=== PATIENT | female | born 1945 | race Caucasian/White ===

== ENCOUNTER → 2016-08-06 16:34 | Outpatient (CLI) | payer MEDICARE | END | disposition home or self-care (01) | LOC: D.MAMMO 13:15 | DX: Z12.31 Encounter for screening mammogram for malignant neoplasm of breast (principal) ==

== ENCOUNTER 2016-11-26 10:30 | Outpatient (CLI) | payer MEDICARE ==
[~2016-11-26] VITALS: Ht 154.9 cm; Wt 88.6 kg
[2016-11-26 12:29] LABS: BASOPHILS 0.5 % (0-2); EOSINOPHILS 4.3 % (0-7); HEMATOCRIT 32.6 % (36.0-48.0); HEMOGLOBIN 10.9 g/dL (12-16); IMMATURE GRANULOCYTES 0.2 % (0-5); LYMPHOCYTES 23.1 % (15-50); MCH 33.1 pg (26.0-34.0); MCHC 33.4 g/dL (31.0-37.0); MCV 99.1 fL (80.0-100.0); MEAN PLATELET VOLUME 9.3 fL (7.4-10.4); MONOCYTES 6.8 % (2-11); NEUTROPHILS 65.1 % (40-80); PLATELET COUNT 189 10x3/uL (130-400); RBC 3.29 10x6/uL (4.00-5.40); RDW 13.2 % (11.5-14.5); WBC 4.4 10x3/uL (4.8-10.8)
[2016-11-26] MEDS ORDERED: GLUCOPHAGE500 MG PO (12:39)
[2016-11-26] MEDS ORDERED: CARDURA2 MG PO (12:40)
[2016-11-26] MEDS ORDERED: LEVOTHYROXINE137 MCG PO (12:40)
[2016-11-26] MEDS ORDERED: HYDROCHLOROTH12.5 M1 PO (12:40)
[2016-11-26] MEDS ORDERED: ZEBETA10 MG PO (12:40)
[2016-11-26] MEDS ORDERED: BUPROPION XL150 MG PO (12:41)
[2016-11-26] MEDS ORDERED: PRINIVIL20 MG PO (12:41)
[2016-11-26] MEDS ORDERED: NORVASC10 MG PO (12:41)
[2016-11-26] MEDS ORDERED: CELEXA40 MG PO (12:41)
[2016-11-26] MEDS ORDERED: FENOFIBRATE134 MG PO (12:41)
[2016-11-26] MEDS ORDERED: ULTRAM50 MG PO (12:42)
[2016-11-26 12:43] LABS: ANION GAP 14.9 mmol/L (8-16); CALCIUM 9.1 mg/dL (8.5-10.1); CARBON DIOXIDE 24.9 mmol/L (21.0-32.0); CREATININE - SERUM 1.2 mg/dL (0.6-1.3); POTASSIUM - SERUM 3.8 mmol/L (3.5-5.1)
[2016-11-26 12:50] VITALS: BP 123/69; Ht 154.9 cm; Wt 88.6 kg
[2016-11-26 13:10] LABS: APTT 26.8 SECONDS (22.8-39.4); INR 0.92 (0.85-1.17); PROTIME 12.2 SECONDS (11.6-15.0)
--- NOTE | 2016-11-26 18:46 | NUR ---
1530--ALL VITAL SIGNS CHARTED ON POST PROCEDURE VITAL SIGN SHEET ON CHART. ALEXIA JENNINGS 1630--IV DC'D, PT UP TO DRESS. ALEXIA JENNINGS 2025--PT'S RIDE IS HERE, DISCHARGE INSTRUCTIONS GIVEN. PT VERBALIZES UNDERSTANDING, PT OFF UNIT VIA WC. ALEXIA JENNINGS
== END 2016-11-26 17:55 | disposition home or self-care (01) ==
LOC: D.OPS 10:30 → D.SP 13:00 → D.OPS 17:55
PROVIDERS: Radiology Diagnostic Radiology
DX: C90.00 Multiple myeloma not having achieved remission (principal)

== ENCOUNTER 2017-01-30 17:41 | Inpatient (IN) | payer MEDICARE ==
[~2017-01-30] VITALS: Ht 154.9 cm; Wt 87.5 kg
[~2017-01-30 17:41] MED LIST: BUPROPION XL150 MG PO; CARDURA2 MG PO; CELEXA40 MG PO; FENOFIBRATE134 MG PO; GLUCOPHAGE500 MG PO; HYDROCHLOROTH12.5 M1 PO; LEVOTHYROXINE137 MCG PO; NORVASC10 MG PO; PRINIVIL20 MG PO; ULTRAM50 MG PO; ZEBETA10 MG PO
[2017-01-30 18:26] LABS: BASOPHILS 0.1 % (0-2); EOSINOPHILS 0.2 % (0-7); HEMATOCRIT 31.6 % (36.0-48.0); HEMOGLOBIN 10.7 g/dL (12-16); IMMATURE GRANULOCYTES 0.3 % (0-5); LYMPHOCYTES 6.6 % (15-50); MCH 33.2 pg (26.0-34.0); MCHC 33.9 g/dL (31.0-37.0); MCV 98.1 fL (80.0-100.0); MEAN PLATELET VOLUME 9.4 fL (7.4-10.4); MONOCYTES 7.1 % (2-11); NEUTROPHILS 85.7 % (40-80); PLATELET COUNT 178 10x3/uL (130-400); RBC 3.22 10x6/uL (4.00-5.40); WBC 12.7 10x3/uL (4.8-10.8)
[2017-01-30 18:45] LABS: ALBUMIN 3.4 g/dL (3.4-5.0); ANION GAP 14.6 mmol/L (8-16); BILIRUBIN - TOTAL 0.39 mg/dL (0.2-1.3); CALCIUM 9.3 mg/dL (8.5-10.1); CARBON DIOXIDE 24.6 mmol/L (21.0-32.0); CREATININE - SERUM 2.1 mg/dL (0.6-1.3); POTASSIUM - SERUM 4.2 mmol/L (3.5-5.1); PROTEIN - SERUM 8.6 g/dL (6.4-8.2)
[2017-01-30 20:00] VITALS: BP 91/45
[2017-01-30 20:58] VITALS: BP 122/58; BMI 36.5
[2017-01-31] VITALS: BP 97/57
[2017-01-31 04:00] VITALS: BP 115/57
[2017-01-31 06:46] LABS: BASOPHILS 0.1 % (0-2); EOSINOPHILS 1.4 % (0-7); HEMATOCRIT 28.5 % (36.0-48.0); HEMOGLOBIN 9.6 g/dL (12-16); IMMATURE GRANULOCYTES 0.1 % (0-5); LYMPHOCYTES 11.7 % (15-50); MCH 33.1 pg (26.0-34.0); MCHC 33.7 g/dL (31.0-37.0); MCV 98.3 fL (80.0-100.0); MEAN PLATELET VOLUME 9.6 fL (7.4-10.4); MONOCYTES 7.7 % (2-11); PLATELET COUNT 151 10x3/uL (130-400); RDW 13.9 % (11.5-14.5)
--- NOTE | 2017-01-31 07:00 | NUR ---
REPORT RECIEVED ASSUMED CARE. PATIENT IN BED WITH IV INTACT. NO COMPLAINTS AT THIS TIME. CALL LIGHT WITHIN REACH.
[2017-01-31 07:10] LABS: ALBUMIN 2.8 g/dL (3.4-5.0); ANION GAP 12.2 mmol/L (8-16); BILIRUBIN - TOTAL 0.35 mg/dL (0.2-1.3); CALCIUM 8.7 mg/dL (8.5-10.1); CARBON DIOXIDE 25.7 mmol/L (21.0-32.0); CREATININE - SERUM 1.7 mg/dL (0.6-1.3); POTASSIUM - SERUM 3.9 mmol/L (3.5-5.1); PROTEIN - SERUM 7.5 g/dL (6.4-8.2)
[2017-01-31 07:48] VITALS: BP 119/57
--- NOTE | 2017-01-31 08:15 | NUR ---
ASSESSMENT COMPLETE, VS STABLE. NO COMPLAINTS AT THIS TIME. REDNESS TO LEFT AXILLA NOTED. IV INTACT. CALL LIGHT WITHIN REACH.
[2017-01-31 09:16] LABS: APPEARANCE CLEAR (CLEAR); BILIRUBIN NEGATIVE (NEGATIVE); COLOR YELLOW (YELLOW); GLUCOSE NEGATIVE (NEGATIVE); KETONE NEGATIVE (NEGATIVE); LEUKOCYTE ESTERASE NEGATIVE (NEGATIVE); NITRITE NEGATIVE (NEGATIVE); PROTEIN TRACE mg/dL (NEGATIVE); UROBILINOGEN NORMAL (NORMAL)
[2017-01-31 11:20] VITALS: Ht 154.9 cm; Wt 87.5 kg
[2017-01-31 11:47] VITALS: BP 121/73
--- NOTE | 2017-01-31 13:15 | NUR ---
PATIENT LEFT AXILLA ABCESS DRAINING AT THIS TIME. 4X4'S PLACED. PATIENT TOLERATED WITH NO PAIN. IV INTACT. CALL LIGHT WITHIN REACH.
[2017-01-31 16:22] VITALS: BP 130/70
--- NOTE | 2017-01-31 17:29 | NUR ---
PATIENT SITTING UP IN CHAIR WITH IV INTACT. NO COMPLAINTS AT THIS TIME. CALL LIGHT WITHIN REACH.
[2017-01-31 19:00] VITALS: BP 136/76
[2017-02-01] VITALS (11 sets, daily range): BP systolic 94–139; BP diastolic 44–78
[2017-02-01] MEDS ORDERED: ADVAIR 100/501 DISK INH (05:44)
[2017-02-01] MEDS ORDERED: NASONEX NASAL S17 GM NS (05:45)
[2017-02-01] MEDS ORDERED: PROAIR HFA8.5 GM INH (05:46)
[2017-02-01] MEDS ORDERED: NORVASC5 MG PO (05:47)
[2017-02-01 06:06] LABS: BASOPHILS 0 % (0-2); EOSINOPHILS 3.8 % (0-7); HEMOGLOBIN 9.4 g/dL (12-16); LYMPHOCYTES 17.5 % (15-50); MCH 33.2 pg (26.0-34.0); MCHC 33.6 g/dL (31.0-37.0); MCV 98.9 fL (80.0-100.0); MEAN PLATELET VOLUME 9.4 fL (7.4-10.4); MONOCYTES 8.1 % (2-11); NEUTROPHILS 70.6 % (40-80); PLATELET COUNT 157 10x3/uL (130-400); RBC 2.83 10x6/uL (4.00-5.40); RDW 13.9 % (11.5-14.5)
[2017-02-01 06:28] LABS: WBC 5.2 10x3/uL (4.8-10.8)
[2017-02-01 06:41] LABS: ALBUMIN 2.6 g/dL (3.4-5.0); ANION GAP 10.5 mmol/L (8-16); BILIRUBIN - TOTAL 0.27 mg/dL (0.2-1.3); CALCIUM 8.1 mg/dL (8.5-10.1); CARBON DIOXIDE 26.5 mmol/L (21.0-32.0); CREATININE - SERUM 1.2 mg/dL (0.6-1.3); PROTEIN - SERUM 7.2 g/dL (6.4-8.2)
--- NOTE | 2017-02-01 13:01 | NUR ---
PATIENT PREOPED FOR SURGERY.
--- NOTE | 2017-02-01 22:35 | NUR ---
REC'D SITTING UP IN BED. ALERT AND ORIENTED X4. DENIED PAIN AT THIS TIME. DENIED FURTHER NEEDS AT THIS TIME. DRESSING IS DRY AND INTACT TO THE LEFT AXILLA. INSTRUCTED TO CALL IF NEEDED ANYTHING. VERBALIZED UNDERSTANDING. BED LOW, LOCKED, CALL LIGHT IN REACH. WILL CONT TO MONITOR.
--- NOTE | 2017-02-02 01:21 | NUR ---
PT RESTING WITH EYES CLOSED. RESP EVEN AND REGULAR/ SR UP X2, CALL LIGHT WITHIN REACH.
[2017-02-02 04:00] VITALS: BP 121/64
--- NOTE | 2017-02-02 05:07 | NUR ---
RESTING WELL. NO DISTRESS NOTED. WILL CONT TO MONITOR. BED LOW, LOCKED, CALL LIGHT IN REACH.
[2017-02-02 05:21] LABS: BASOPHILS 0.2 % (0-2); EOSINOPHILS 3.7 % (0-7); HEMATOCRIT 27.7 % (36.0-48.0); HEMOGLOBIN 9.1 g/dL (12-16); IMMATURE GRANULOCYTES 0.4 % (0-5); LYMPHOCYTES 7.5 % (15-50); MCHC 32.9 g/dL (31.0-37.0); MEAN PLATELET VOLUME 8.1 fL (7.4-10.4); MONOCYTES 11.7 % (2-11); NEUTROPHILS 76.5 % (40-80); RBC 3.14 10x6/uL (4.00-5.40)
[2017-02-02 05:42] LABS: ANION GAP 14.8 mmol/L (8-16); CALCIUM 8.7 mg/dL (8.5-10.1); CARBON DIOXIDE 20.7 mmol/L (21.0-32.0); MCV 88.2 fL (80.0-100.0); PLATELET COUNT 368 10x3/uL (130-400); POTASSIUM - SERUM 4.5 mmol/L (3.5-5.1); WBC 13.1 10x3/uL (4.8-10.8)
--- NOTE | 2017-02-02 07:30 | NUR ---
RECIEVED PT DURING WALKING ROUNDS. PT RESTING IN BED WITH NO COMPLAINTS OF PAIN OR DISCOMFORT AT THIS TIME. ASSESSMENT DONE PER FLOWSHEET. BED IN LOW POSITION AND CALL LIGHT WITHIN REACH. WILL CONTINUE TO MONITOR.
[2017-02-02 08:24] VITALS: BP 127/56
[2017-02-02 12:24] VITALS: BP 122/62
--- NOTE | 2017-02-02 15:46 | OP ---
PATIENT NAME: TANIKA HUGHES MEDICAL RECORD: [id number] :41 LOCATION:[id number] ADMISSION DATE:01/30/17 SURGEON: LACI BRAGA MD DATE OF OPERATION: 02/01/2017 PREOPERATIVE DIAGNOSIS: Left axillary abscess. POSTOPERATIVE DIAGNOSIS: Left axillary abscess. Please see dimensions below. PROCEDURES: Excisional debridement of left axillary abscess with marsupialization and packing of the wound. Dimensions of debridement, including margins, measured at 3.2 cm x 2.5 cm included skin, subcutaneous tissue as well as abscess cavity. I sharply debrided back to viable tissue. SURGEON: Laci Braga MD. CREDIT COORDINATOR: None. BLOOD LOSS: Minimal. ANESTHESIA: General. COMPLICATIONS: None. The risks, possible complications and alternatives to procedure were explained to the patient. She elects to proceed. OPERATIVE COURSE: The patient was conveyed to the operating room electively on 02/01/2017. General anesthesia was induced by anesthesia staff. The patient was placed in the lithotomy position with the left side up. The left axilla was sterilely prepped and draped. Through the use of double curvilinear incisions, I excised the skin and subcutaneous tissue as well as a portion of the abscess cavity. Blunt dissection was carried out in the abscess cavity. I then curetted out the abscess cavity. Cultures were obtained. I irrigated with hydrogen peroxide. I then marsupialized the wound with a running locking 3-0 Vicryl Rapide suture. I then packed the wound with 2-inch Kerlix gauze soaked in quarter strength Dakin's. A sterile dressing was applied. The patient was then extubated and conveyed to post-anesthesia care unit where she was in stable condition. My plan will be to keep her in the hospital for another 2 days and have the packing removed at that time. TRANSINT:[id number] Voice Confirmation ID: [id number] DOCUMENT ID: [id number] LACI BRAGA MD at 1546 CC: [id number] DICTATION DATE: 02/01/17 1451 FRONT END WEB DESIGNER: 02/01/172126 ADM IN [place] [id number] [place] [address]
--- NOTE | 2017-02-02 15:46 | CN ---
PATIENT NAME:TANIKA HUGHES MEDICAL RECORD: [id number] : 41 LOCATION:[facility] ADMIT DATE: 01/30/17 ACCOUNT: [id number] CONSULTING PHYSICIAN: MIGEL BRAGA MD REFERRING PHYSICIAN: RAMILA IZAGUIRRE DO DATE OF CONSULTATION: 01/31/2017 Consultation Note CHIEF COMPLAINT: Pain. HISTORY OF PRESENT ILLNESS: This is a patient of Dr. Rowell. The patient presents with left axillary abscess. It is of recent onset. Palpation aggravates. Nothing alleviates. Currently, it is not draining. The zone of erythema is greater than 10 cm. This does not appear to be hidradenitis suppurativa. This is ____ for the typed portion of the progress note, please see the chart. This would include the past medical and surgical history, allergies, current medications, family history as well as social history and allergies. ALLERGIES: Cipro. SOCIAL HISTORY: Ex-smoker. PAST MEDICAL AND SURGICAL HISTORY: COPD, bilateral tubal ligation, thyroid surgery, diabetes, multiple myeloma, gastroesophageal reflux. 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 Depression, hypertension. REVIEW OF SYSTEMS: No nausea, no vomiting. Positive for fever. No chills, no chest pain, no shortness of breath. Review of systems is negative other than as is described above. PHYSICAL EXAMINATION: GENERAL: The patient does not appear acutely ill. She does not appear chronically ill. VITAL SIGNS: Reviewed. HEAD: External ears appear normal. EYES: Extraocular movements are intact. NECK: Trachea is midline. CHEST: No intercostal retractions. PULMONARY: Nonlabored, no stridor. ABDOMEN: Nontender. EXTREMITIES: No peripheral cyanosis. INTEGUMENT: Left axillary abscess that is beginning to point. It is not draining yet. BACK: No thoracic kyphosis. LYMPHATICS: No lymphangitic streaking of the exposed extremities. BACK: No thoracic kyphosis. IMPRESSION: Left axillary abscess. PLAN: Continue IV antibiotics. Excisional debridement in the operating room. TRANSINT:[id number] Voice Confirmation ID: [id number] DOCUMENT ID: [id number] CONSULT REPORT [id number] TANIKA HUGHES ROBERT MD at 1540 CC: RAMILA IZAGUIRRE DO and ABENA RAMIREZ MD [id number] DICTATION DATE: 02/01/17 1443 YOUTH DEVELOPMENT PROFESSIONAL: 02/01/172105 ADM IN [place] [id number] [place] [id number]
--- NOTE | 2017-02-02 16:07 | NUR ---
NUTRITION MONITORING & EVAL CHART REVIEWED, PT VISIT. CURRENTLY IN ISOLATION. PT REPORTS GOOD PO INTAKE RECENT MEALS. RD FOLLOWING
[2017-02-02 16:13] VITALS: BP 116/55
[2017-02-02 19:00] VITALS: BP 125/66
--- NOTE | 2017-02-02 19:30 | NUR ---
RECIEVED SHIFT REPORT. PT IS SITTING UP IN CHAIR. ALERT AND ORIENTED AND ABLE TO VERBALIZE NEEDS. IV IS PATENT AND SALINE LOC AT THIS TIME. PT IS AMBULATORY BUT WAS INSTRUCTED TO CALL FOR ANY ASSISTANCE NEEDED. DRESSING TO LEFT AXILLARY C/D/I. PT STATES PAIN IS 7/10. ISOLATION PRECAUTIONS IN PLACE. NO NEEDS ARE VERBALIZED AT THIS TIME. WILL CONTINUE TO MONITOR. SIDE RAILS ARE UP X 2. BED IS IN LOWEST POSITION. CALL LIGHT IS WITHIN REACH.
--- NOTE | 2017-02-02 21:50 | NUR ---
SHIFT ASSESSMENT COMPLETED. PT C/O PAIN 12/13. ADMINISTERED PRESCRIBED PRN ULTRAM PER ORDER. DENIES FURTHER NEEDS. WILL MONITOR. SIDE RAILS X 2. BED LOW. CALL LIGHT IN REACH.
[2017-02-03] VITALS: BP 123/67
[2017-02-03 04:00] VITALS: BP 136/92
[2017-02-03 04:59] LABS: BASOPHILS 0.2 % (0-2); EOSINOPHILS 3.9 % (0-7); HEMATOCRIT 26.2 % (36.0-48.0); HEMOGLOBIN 8.7 g/dL (12-16); LYMPHOCYTES 29.8 % (15-50); MCH 32.7 pg (26.0-34.0); MCHC 33.2 g/dL (31.0-37.0); MCV 98.5 fL (80.0-100.0); MEAN PLATELET VOLUME 8.9 fL (7.4-10.4); MONOCYTES 9.6 % (2-11); NEUTROPHILS 56.5 % (40-80); PLATELET COUNT 149 10x3/uL (130-400); RBC 2.66 10x6/uL (4.00-5.40); RDW 13.6 % (11.5-14.5); WBC 4.1 10x3/uL (4.8-10.8)
[2017-02-03 05:15] LABS: ANION GAP 9.7 mmol/L (8-16); CALCIUM 7.6 mg/dL (8.5-10.1); POTASSIUM - SERUM 4.2 mmol/L (3.5-5.1)
[2017-02-03 05:16] LABS: CARBON DIOXIDE 26.5 mmol/L (21.0-32.0); CREATININE - SERUM 1.1 mg/dL (0.6-1.3)
--- NOTE | 2017-02-03 07:10 | NUR ---
Patient Name: TANIKA HUGHES Admission Status: Urgent Accout number: [id number] Admission Date: 01-30-2017 : 1945 Admission Diagnosis: Attending: OLIVER Current LOS: 4 Anticipated DC Date: 02-03-2017 Planned Disposition: Home Primary Insurance: MEDICARE A & B Discharge Planning Comments: CM MET WITH PATIENT REGARDING D/C NEEDS AND PLANS. PATIENT STATED SHE LIVES ALONE AND WILL DRIVE HERSELF HOME AT DISCHARGE. PATIENT STATED SHE HAS ABOUT 6 STEPS W/RAILS TO ENTER HOME AND 1 STAIRCASE INSIDE W/RAILS. PATIENT STATED SHE IS INDEPENDENT WITH HER CARE AND HAS A GLUCOMETER AT HOME (DOES NOT CHECK MUCH). PATIENTS PCP IS DR. RAMIREZ AND PHARMACY IS [facility]. PATIENT REFUSED HOME HEALTH BOTH TIMES OFFERED. PATIENT STATED "OH NO" I CAN HANDLE MYSELF. CM WILL CONTINUE TO FOLLOW PATIENT WITH D/C NEEDS AND PLANS. PCP DR. [facility]- [phone] JOSE (SON) [phone] Public Policy Coordinator: Annamaria Goss Is the patient Alert and Oriented? Yes 0 * How many steps to enter\\exit or inside your home? fligh 0 * PCP DR. RAMIREZ 0 * Pharmacy [facility] 0 * Preadmission Environment Home Alone 0 * ADLs Independent 0 * Equipment Glucometer 0 * List name and contact numbers for known caregivers / representatives who currently or will assist patient after discharge: JOSE (SON) [phone] 0 * Community resources currently utilized None 0 * Additional services required to return to the preadmission environment? Yes 0 * Can the patient safely return to the preadmission environment? Yes 0 * Has this patient been hospitalized within the prior 30 days at any hospital? No 0
[2017-02-03 08:13] VITALS: BP 136/78
[2017-02-03] MEDS ORDERED: BACTRIM DS TABL1 TAB PO (09:33)
--- NOTE | 2017-02-03 09:40 | NUR ---
DRESSING AND PACKING REMOVED BY DR. BRAGA AT THIS TIME. DRESSING APPLIED PER VERBAL ORDER. PT AWAITING DISCHARGE. WILL CONTINUE TO MONITOR.
--- NOTE | 2017-02-03 10:10 | NUR ---
CM REASSESSMENT NOTE: PATIENT CHOSE [facility] AND SIGNED THE ANA FORM. PATIENT D/C TODAY AND DRIVING HERSELF HOME.
--- NOTE | 2017-02-03 11:13 | NUR ---
IV REMOVED AND DISCHARGE INSTRUCTIONS GIVEN, PT DISCHARGED VIA WHEELCHAIR TO HOME.
== END 2017-02-03 11:13 | disposition home health service (06) | DRG 854 ==
LOC: D.MS 17:41
PROVIDERS: Family Medicine; Surgery; ADMIT Family Medicine
PROC: 0JBF0ZZ Excision of Left Upper Arm Subcutaneous Tissue and Fascia, Open Approach (ICD-10-PCS; principal; 2017-02-01 12:00)
DX: A41.9 Sepsis, unspecified organism (principal); L03.112 Cellulitis of left axilla; L02.412 Cutaneous abscess of left axilla; B95.62 Methicillin resistant Staphylococcus aureus infection as the cause of diseases classified elsewhere; E86.0 Dehydration; E11.9 Type 2 diabetes mellitus without complications; K21.9 Gastro-esophageal reflux disease without esophagitis; F32.9 Major depressive disorder, single episode, unspecified; I10 Essential (primary) hypertension; J44.9 Chronic obstructive pulmonary disease, unspecified

== ENCOUNTER 2017-03-04 21:13 | Emergency (ER) | payer MEDICARE ==
[2017-01-31 11:20] VITALS: BMI 36.4
[~2017-03-04 21:13] MED LIST changes: +ADVAIR 100/501 DISK INH; +BACTRIM DS TABL1 TAB PO; +NASONEX NASAL S17 GM NS; +NORVASC5 MG PO; +PROAIR HFA8.5 GM INH
[2017-03-04 21:42] LABS: BASOPHILS 0.2 % (0-2); EOSINOPHILS 1.8 % (0-7); HEMATOCRIT 31.5 % (36.0-48.0); HEMOGLOBIN 10.5 g/dL (12-16); IMMATURE GRANULOCYTES 0.2 % (0-5); LYMPHOCYTES 26.7 % (15-50); MCHC 33.3 g/dL (31.0-37.0); MCV 99.1 fL (80.0-100.0); MEAN PLATELET VOLUME 9.4 fL (7.4-10.4); MONOCYTES 9.6 % (2-11); NEUTROPHILS 61.5 % (40-80); RBC 3.18 10x6/uL (4.00-5.40); RDW 14.5 % (11.5-14.5); WBC 5.5 10x3/uL (4.8-10.8)
[2017-03-04 21:47] LABS: PLATELET COUNT 179 10x3/uL (130-400)
[2017-03-04 22:02] LABS: ALBUMIN 3.5 g/dL (3.4-5.0); ANION GAP 13.7 mmol/L (8-16); BILIRUBIN - TOTAL 0.17 mg/dL (0.2-1.3); CALCIUM 9.2 mg/dL (8.5-10.1); CARBON DIOXIDE 25.1 mmol/L (21.0-32.0); CREATININE - SERUM 1.8 mg/dL (0.6-1.3); POTASSIUM - SERUM 3.8 mmol/L (3.5-5.1); PROTEIN - SERUM 8.4 g/dL (6.4-8.2)
[2017-03-04 22:11] LABS: TROPONIN-I 0.035 ng/mL (0.000-0.060)
== END 2017-03-04 23:40 | disposition home or self-care (01) ==
LOC: D.ER 21:13
PROVIDERS: Emergency Medicine
DX: I50.9 Heart failure, unspecified (principal); D64.9 Anemia, unspecified; N17.9 Acute kidney failure, unspecified; E86.0 Dehydration; J44.9 Chronic obstructive pulmonary disease, unspecified; E11.9 Type 2 diabetes mellitus without complications; I10 Essential (primary) hypertension; I45.10 Unspecified right bundle-branch block

== ENCOUNTER 2017-09-17 08:11 | Outpatient (CLI) | payer MEDICARE ==
[~2017-09-17] VITALS: Ht 153.7 cm; Wt 87.7 kg
[2017-09-17 09:09] VITALS: BP 134/55; Ht 153.7 cm; Wt 87.7 kg
[2017-09-17 10:21] LABS: APTT 26.5 SECONDS (22.8-39.4); INR 0.94 (0.85-1.17); PROTIME 12.2 SECONDS (11.6-15.0)
[2017-09-17 10:23] LABS: CALCIUM 10.2 mg/dL (8.5-10.1); CREATININE - SERUM 1.3 mg/dL (0.6-1.3)
[2017-09-17 10:26] LABS: BASOPHILS 0.2 % (0-2); EOSINOPHILS 3.3 % (0-7); HEMATOCRIT 30.8 % (36.0-48.0); MCH 31.8 pg (26.0-34.0); MCHC 32.5 g/dL (31.0-37.0); MCV 98.1 fL (80.0-100.0); MEAN PLATELET VOLUME 9.8 fL (7.4-10.4); MONOCYTES 6.5 % (2-11); PLATELET COUNT 168 10x3/uL (130-400); RBC 3.14 10x6/uL (4.00-5.40); RDW 13.9 % (11.5-14.5); WBC 5.1 10x3/uL (4.8-10.8)
== END 2017-09-17 15:25 | disposition home or self-care (01) ==
LOC: D.OPS 08:11 → D.MRI 09:00 → D.CT 11:00 → D.OPS 15:25 → D.CT 09-18 08:00
PROVIDERS: Radiology Vascular & Interventional Radiology
DX: C90.00 Multiple myeloma not having achieved remission (principal)

== ENCOUNTER → 2017-09-18 22:35 | Outpatient (CLI) | payer MEDICARE ==
[2017-09-17 09:09] VITALS: BMI 37.1
[~2017-09-18 22:35] MED LIST changes: +BAYER CHEWABLE81 MG PO; +K-TAB10 MEQ PO; +LASIX40 MG PO; +PRESERVISION AR1 CAP PO; +VENTOLIN HFA18 GM INH; +VITAMIN B COMPL1 TAB PO; +VITAMIN D31000 UNI2 PO
== END | disposition home or self-care (01) ==
LOC: D.MAMMO 08-27 11:30
DX: Z12.31 Encounter for screening mammogram for malignant neoplasm of breast (principal)

== ENCOUNTER 2017-10-21 20:46 | Inpatient (IN) | payer MEDICARE ==
[~2017-10-21] VITALS: Ht 153.7 cm; Wt 88.9 kg
--- NOTE | ~2017-10-21 | HP ---
PATIENT: TANIKA HUGHES MEDICAL RECORD: [id number] ACCOUNT: [id number] LOCATION:D.[facility] : 41 ADMISSION DATE: 10/22/17 HISTORY AND PHYSICAL EXAMINATION CHIEF COMPLAINT: Shortness of breath. HISTORY OF PRESENT ILLNESS: The patient is a 71-year-old female who states that she began experiencing shortness of breath, which started last week. She had also had pain with inspiration, has had low-grade fever. She had had pain in the mid back radiating up to the left scapula. She presented to the Emergency Room where it felt the patient had worsening of COPD. PAST MEDICAL HISTORY: Significant in that she had a history of having myelodysplasia. She has had hypertension. She has had depression, hyperlipidemia, hypothyroidism, diabetes mellitus, and osteoarthritis. She is a G3, P2, AB1. FAMILY HISTORY: Mother had malignant neoplasm, at 50 years of age. Father had heart disease, at 47 years of age. SOCIAL HISTORY: The patient has worked at [employer]. She is educated through the 12th grade. She is . She has been a smoker since age 14. She denies any ethanol use or abuse. PAST MEDICAL HISTORY: She has had tubal ligations, has also had back surgery, lipoma removed from the spine. ALLERGIES: CIPRO. MEDICATIONS: Include Advair Diskus 100 mcg/50 one puff twice a day, amlodipine 5 mg once a day, Bisoprolol 10 mg 1 p.o. every day, Wellbutrin 150 mg once a day, Celexa 40 mg daily, doxazosin 2 mg daily, fenofibrate 134 daily, HCTZ 12.5 mg once a day, levothyroxine 125 mcg once a day, lisinopril 20 mg b.i.d., metformin 500 mg daily, KCl 10 mEq once a day, ProAir 2 puffs q.4 hours p.r.n. shortness of breath, and Tramadol 50 mg 1-2 every 6 hours p.r.n. REVIEW OF SYSTEMS: CONSTITUTIONAL: She denies any headaches, seizure or syncope. Denied change in visual or auditory acuity. PULMONARY: The patient has reported increased shortness of breath, cough. No sputum production. CARDIOVASCULAR: No chest pain, palpitation, PND, orthopnea. GASTROINTESTINAL: No chronic nausea, vomiting, melena, or hematochezia. GENITOURINARY: No urgency, frequency, or dysuria. PHYSICAL EXAMINATION: GENERAL: In the Emergency Room; temperature was 99.3, pulse 67, respirations 15 and unlabored, blood pressure 116/58 and O2 sat was 97% on 2 liters. HEENT: Head is normocephalic. No lesions. Ears: TMs clear. Eyes: Pupils equal, round and react to light. Extraocular movements are intact. Nasal cavity, oral cavity, and oropharynx clear. NECK: Supple. There is no adenopathy. HEART: Has a regular rate. LUNGS: Decreased breath sounds in all reddy. She has end expiratory wheezes HISTORY AND PHYSICAL [id number] TANIKA HUGHES present. ABDOMEN: Soft, bowel sounds are positive. EXTREMITIES: Lower extremities have no edema. RECTAL: Deferred. GENITAL: Deferred. LABORATORY DATA: Chest x-ray shows atelectasis on the left. No active infiltrates. The patient's white count is 2.2, hemoglobin is 8.5, hematocrit 26.2, her platelets are 80. Sodium 140, potassium 3.6, chloride is 104, BUN is 27, creatinine 1.5, glucose is 118. ProBNP was 1147. ASSESSMENT: Shortness of breath, chronic obstructive pulmonary disease exacerbation, possible congestive heart failure, depression, hypothyroidism, diabetes mellitus, and hypertension. PLAN: The patient will be admitted. She will be placed on Rocephin as well as Zithromax, Solu-Medrol. She will be given IV Lasix. Echocardiogram will be performed. TRANSINT:[id number] Voice Confirmation ID: [id number] DOCUMENT ID: [id number] ABENA RAMIREZ MD at 0659 CC: [id number] DICTATION DATE: 10/22/17718 REGIONAL PRODUCTION MANAGER: 10/22/17818 [place] [address]
--- NOTE | ~2017-10-21 | DS ---
PATIENT:TANIKA HUGHES :41 MEDICAL RECORD: [id number] DISCHARGE SUMMARY ADMISSION DATE: 10/22/17 DISCHARGE DATE: 10/27/17 DATE OF ADMISSION: 10/22/2017 DATE OF DISCHARGE: 10/27/2017 CONDITION ON DISCHARGE: Improved. ADMITTING DIAGNOSES: Shortness of breath, chronic obstructive pulmonary disease exacerbation, possible congestive heart failure, depression, hypothyroidism, diabetes, hypertension, history of multiple myeloma. DISCHARGE DIAGNOSES: Chronic obstructive pulmonary disease exacerbation, neutropenia secondary to multiple myeloma, myelodysplasia, major depression, hypothyroidism, type 2 diabetes, hypertension, heart failure, hyperlipidemia. HOSPITAL COURSE: A 71-year-old female who began experiencing shortness of breath 1 week prior to her admission. She had pain upon inspiration, low-grade fever. Pain radiated to the left scapula, presented to the Emergency Room where she was found to have worsening of her COPD. In the Emergency Room, her temperature was 99.3, pulse was 67, respirations 15, her blood pressure 116/52, her O2 sat was 97% on 2 liters. Her HEENT was unremarkable. Neck supple. There was no adenopathy. Heart had a regular rate. Lungs, she had decreased breath sounds in all reddy. She did have diffuse end-expiratory wheezes. Abdomen was soft, bowel sounds are positive. Lower extremities had no edema. Chest x-ray showed atelectasis on the left lower lung. No active infiltrates. White count was 2.2, hemoglobin 8.5, hematocrit was 26.2, platelets were 80. Sodium was 140, potassium 3.6, chloride 104, BUN was 27, creatinine 1.5, glucose 118. ProBNP was elevated at 1147. The patient was admitted, placed on Rocephin as well as Zithromax, Solu-Medrol, given IV Lasix. She did have an echocardiogram. Echocardiogram revealed left ventricular hypertrophy with preserved ejection fraction of 55%. Mitral valve, no regurgitation or prolapse. She did have diastolic dysfunction, mild dilation of the left atrium. Aortic valve trileaflet without stenosis or regurgitation. Right ventricle mildly dilated, normal function. No cardiac effusions were noted. The patient was also seen by Dr. Douglass, her oncologist. The patient had had a history of myeloma, had been treated 8 years prior with excellent response. She was going to resume treatment with Velcade and dexamethasone with the addition of Pomalyst. The patient's chest x-ray on the revealed trace of pleural effusion resolved, discoid atelectasis of the lateral right lung, although single focus of air space opacification was identified. It was felt that the patient did have left lower lobe pneumonia. On the , she had a KUB showing moderate amount of stool. Her condition slowly began to improve. On the , it was felt that the patient was stable. Her white count was up to 5.7, her hemoglobin 9.4, hematocrit was 30.0, and her platelets were 157. Sodium 138, potassium 4.5, CO2 was 34.8, her chloride was 104, BUN slightly elevated at 50, creatinine was 1.1, glucose 151. She was afebrile. Her vital signs are stable. DISCHARGE MEDICATIONS: The patient was discharged home to continue metformin 500 mg daily, levothyroxine 137 mcg once a day, HCTZ 12.5 mg one p.o. every day, DISCHARGE SUMMARY REPORT [id number] TANIKA HUGHES Zebeta 10 mg once a day, Cardura 1 mg p.o. every day, Celexa 40 mg once a day, Wellbutrin 150 mg once a day, fenofibrate 134 mg once a day, lisinopril 20 mg daily, tramadol 50 mg p.o. every day, Advair Diskus 100/50 one puff every day, amlodipine 5 mg daily, Lasix 40 mg p.o. p.r.n. swelling, aspirin 81 mg once a day, KCl 10 mEq 1 p.o. every day, vitamin B complex 1 p.o. every day, vitamin D 1000 international units daily, Ventolin inhaler 2 puffs q.4 hours p.r.n. shortness of breath. DISCHARGE INSTRUCTIONS: The patient was to be discharged on a 2200 calorie ADA diet. Her activities were ad kaela. She would follow up with me in 10-14 days. She was to call for followup with Dr. Douglass on November 09. TRANSINT:[id number] Voice Confirmation ID: [id number] DOCUMENT ID: [id number] ABENA RAMIREZ MD at 1250 CC: [id number] DICTATION DATE: 12/06/17 8031 FACILITIES CLERK: 12/07/17 1157 DIS IN 10/27/17 [facility] [address] [facility] [place] [id number]
[~2017-10-21 20:46] MED LIST changes: -BAYER CHEWABLE81 MG PO; -K-TAB10 MEQ PO; -LASIX40 MG PO; -PRESERVISION AR1 CAP PO; -VENTOLIN HFA18 GM INH; -VITAMIN B COMPL1 TAB PO; -VITAMIN D31000 UNI2 PO
[2017-10-21 21:37] LABS: BASOPHILS 0.4 % (0-2); EOSINOPHILS 0.4 % (0-7); HEMATOCRIT 26.2 % (36.0-48.0); HEMOGLOBIN 8.5 g/dL (12-16); IMMATURE GRANULOCYTES 1.3 % (0-5); LYMPHOCYTES 15.2 % (15-50); MCH 32.1 pg (26.0-34.0); MCHC 32.4 g/dL (31.0-37.0); MCV 98.9 fL (80.0-100.0); MEAN PLATELET VOLUME 9.7 fL (7.4-10.4); MONOCYTES 24.2 % (2-11); NEUTROPHILS 58.5 % (40-80); RBC 2.65 10x6/uL (4.00-5.40); RDW 14.3 % (11.5-14.5); WBC 2.2 10x3/uL (4.8-10.8)
[2017-10-21 21:46] LABS: ALBUMIN 2.9 g/dL (3.4-5.0); ALKALINE PHOSPHATASE 22 U/L (46-116); ALT (SGPT) 17 U/L (10-68); BILIRUBIN - TOTAL 0.66 mg/dL (0.2-1.3); CALC OSMOLALITY 284 mosm/kg (275-300); CALCIUM 8.9 mg/dL (8.5-10.1); CARBON DIOXIDE 27.2 mmol/L (21.0-32.0); CHLORIDE - SERUM 104 mmol/L (98-107); CREATININE - SERUM 1.5 mg/dL (0.6-1.3); GLUCOSE 118 mg/dL (74-106); POTASSIUM - SERUM 3.6 mmol/L (3.5-5.1); PROTEIN - SERUM 7.5 g/dL (6.4-8.2); SODIUM 140 mmol/L (136-145); UREA NITROGEN 27 mg/dL (7-18); eGFR NON AFRICAN AMERICAN 36 mL/min (90-120)
[2017-10-21 21:57] LABS: CKMB 0.4 U/L (0.0-3.6); CREATINE KINASE 64 UL (21-215)
[2017-10-21 22:02] LABS: PLATELET COUNT 80 10x3/uL (130-400)
[2017-10-21 22:12] LABS: TROPONIN-I < 0.017 ng/mL (0.000-0.060)
[2017-10-21 22:19] LABS: PLATELET ESTIMATE DECREASED
[2017-10-22] VITALS (14 sets, daily range): BP systolic 105–140; BP diastolic 41–85; Ht 153.7 cm; Wt 88.9 kg
[2017-10-22] MEDS ORDERED: LASIX40 MG PO (04:03)
[2017-10-22] MEDS ORDERED: BAYER CHEWABLE81 MG PO (04:03)
[2017-10-22] MEDS ORDERED: K-TAB10 MEQ PO (04:04)
[2017-10-22] MEDS ORDERED: VITAMIN B COMPL1 TAB PO (04:05)
[2017-10-22] MEDS ORDERED: PRESERVISION AR1 CAP PO (04:05)
[2017-10-22] MEDS ORDERED: VITAMIN D31000 UNI2 PO (04:06)
[2017-10-23 00:56] VITALS: BP 128/68
[2017-10-23 03:45] LABS: BASOPHILS 0 % (0-2); EOSINOPHILS 0 % (0-7); HEMATOCRIT 29.2 % (36.0-48.0); HEMOGLOBIN 9.4 g/dL (12-16); IMMATURE GRANULOCYTES 0.6 % (0-5); LYMPHOCYTES 10.1 % (15-50); MCH 31.1 pg (26.0-34.0); MCHC 32.2 g/dL (31.0-37.0); MEAN PLATELET VOLUME 10.2 fL (7.4-10.4); MONOCYTES 25.3 % (2-11); RBC 3.02 10x6/uL (4.00-5.40); RDW 14.7 % (11.5-14.5)
[2017-10-23 03:47] LABS: WBC 1.6 10x3/uL (4.8-10.8)
[2017-10-23 03:48] LABS: MCV 96.7 fL (80.0-100.0); PLATELET COUNT 102 10x3/uL (130-400)
[2017-10-23 04:18] LABS: ALBUMIN 2.5 g/dL (3.4-5.0); ANION GAP 15.8 mmol/L (8-16); BILIRUBIN - TOTAL 0.32 mg/dL (0.2-1.3); CALCIUM 8.1 mg/dL (8.5-10.1); CARBON DIOXIDE 25.3 mmol/L (21.0-32.0); CREATININE - SERUM 1.7 mg/dL (0.6-1.3); POTASSIUM - SERUM 3.1 mmol/L (3.5-5.1); PROTEIN - SERUM 7.2 g/dL (6.4-8.2)
[2017-10-23 04:44] VITALS: BP 134/74
[2017-10-23 08:39] VITALS: BP 127/51
[2017-10-23 13:09] VITALS: BP 125/56
[2017-10-23 16:19] VITALS: BP 100/57
[2017-10-23 20:43] VITALS: BP 133/76
[2017-10-24 05:52] VITALS: BP 146/54
[2017-10-24 06:39] LABS: BASOPHILS 0 % (0-2); EOSINOPHILS 0.7 % (0-7); HEMATOCRIT 29.6 % (36.0-48.0); HEMOGLOBIN 9.6 g/dL (12-16); IMMATURE GRANULOCYTES 0.7 % (0-5); MCH 31.3 pg (26.0-34.0); MCHC 32.4 g/dL (31.0-37.0); MCV 96.4 fL (80.0-100.0); MEAN PLATELET VOLUME 10.7 fL (7.4-10.4); NEUTROPHILS 64.6 % (40-80); RBC 3.07 10x6/uL (4.00-5.40); RDW 14.6 % (11.5-14.5)
[2017-10-24 06:41] LABS: PLATELET COUNT 128 10x3/uL (130-400)
[2017-10-24 06:43] LABS: WBC 1.5 10x3/uL (4.8-10.8)
[2017-10-24 07:01] LABS: ALBUMIN 2.2 g/dL (3.4-5.0); ANION GAP 11.7 mmol/L (8-16); BILIRUBIN - TOTAL 0.2 mg/dL (0.2-1.3); CALCIUM 8.1 mg/dL (8.5-10.1); CARBON DIOXIDE 26.8 mmol/L (21.0-32.0); CREATININE - SERUM 1.8 mg/dL (0.6-1.3); MAGNESIUM - SERUM 1.6 mg/dL (1.8-2.4); POTASSIUM - SERUM 3.5 mmol/L (3.5-5.1); PROTEIN - SERUM 6.7 g/dL (6.4-8.2)
[2017-10-24 09:09] VITALS: BP 118/48; BP 160/90
[2017-10-24 12:30] VITALS: BP 123/52
[2017-10-24 15:58] VITALS: BP 119/52
[2017-10-24 20:00] VITALS: BP 116/63
[2017-10-25] VITALS: BP 125/66
[2017-10-25 04:05] VITALS: BP 126/68
[2017-10-25 05:45] LABS: HEMATOCRIT 30.4 % (36.0-48.0); HEMOGLOBIN 9.9 g/dL (12-16); MCH 31.3 pg (26.0-34.0); MCHC 32.6 g/dL (31.0-37.0); MCV 96.2 fL (80.0-100.0); MEAN PLATELET VOLUME 10.1 fL (7.4-10.4); PLATELET COUNT 125 10x3/uL (130-400); RBC 3.16 10x6/uL (4.00-5.40); RDW 14.5 % (11.5-14.5)
[2017-10-25 05:53] LABS: WBC 2.7 10x3/uL (4.8-10.8)
[2017-10-25 05:55] LABS: ANION GAP 11.8 mmol/L (8-16); CALCIUM 7.8 mg/dL (8.5-10.1); CREATININE - SERUM 1.4 mg/dL (0.6-1.3); POTASSIUM - SERUM 3.8 mmol/L (3.5-5.1)
[2017-10-25 06:33] LABS: EOSINOPHILS 2 % (0-7); LYMPHOCYTES 18 % (15-50); MONOCYTES 2 % (2-11); NEUTROPHILS 62 % (40-80); PLATELET ESTIMATE NORMAL; PLATELET MORPHOLOGY GIANT PLTS PRESENT
[2017-10-25 09:18] VITALS: BP 128/59
[2017-10-25 12:09] VITALS: BP 130/60
[2017-10-25 16:09] VITALS: BP 118/65
[2017-10-25 20:54] VITALS: BP 117/63
[2017-10-26 00:26] VITALS: BP 131/65
[2017-10-26 06:03] VITALS: BP 128/79
[2017-10-26 08:27] VITALS: BP 142/76
[2017-10-26 12:29] VITALS: BP 101/64
[2017-10-26 16:48] VITALS: BP 111/61
[2017-10-26 19:52] VITALS: BP 109/58
[2017-10-27 00:01] VITALS: BP 118/49
[2017-10-27 04:17] VITALS: BP 135/63
[2017-10-27 06:18] LABS: BASOPHILS 0 % (0-2); EOSINOPHILS 1.4 % (0-7); HEMOGLOBIN 9.4 g/dL (12-16); IMMATURE GRANULOCYTES 0.9 % (0-5); LYMPHOCYTES 13.5 % (15-50); MCH 30.8 pg (26.0-34.0); MCHC 31.3 g/dL (31.0-37.0); MONOCYTES 21.1 % (2-11); NEUTROPHILS 63.1 % (40-80); RBC 3.05 10x6/uL (4.00-5.40); RDW 14.6 % (11.5-14.5)
[2017-10-27 06:19] LABS: ANION GAP 6.7 mmol/L (8-16); CALCIUM 8.3 mg/dL (8.5-10.1); CARBON DIOXIDE 34.8 mmol/L (21.0-32.0); CREATININE - SERUM 1.1 mg/dL (0.6-1.3)
[2017-10-27 06:21] LABS: POTASSIUM - SERUM 4.5 mmol/L (3.5-5.1)
[2017-10-27 06:25] LABS: MCV 98.4 fL (80.0-100.0); PLATELET COUNT 157 10x3/uL (130-400); WBC 5.7 10x3/uL (4.8-10.8)
[2017-10-27] MEDS ORDERED: VENTOLIN HFA18 GM INH (07:03)
[2017-10-27 09:15] VITALS: BP 119/71
[2017-10-27 14:25] VITALS: BP 140/53
== END 2017-10-27 16:13 | disposition home or self-care (01) | DRG 809 ==
LOC: D.ER 20:46 → D.EDHOLD 10-22 01:15 → D.MS 10-22 01:15
PROVIDERS: Emergency Medicine; Family Medicine; Internal Medicine Medical Oncology
DX: D70.9 Neutropenia, unspecified (principal); J44.1 Chronic obstructive pulmonary disease with (acute) exacerbation; C90.02 Multiple myeloma in relapse; D46.9 Myelodysplastic syndrome, unspecified; F32.9 Major depressive disorder, single episode, unspecified; E03.9 Hypothyroidism, unspecified; E11.9 Type 2 diabetes mellitus without complications; I11.0 Hypertensive heart disease with heart failure; I50.9 Heart failure, unspecified; E78.5 Hyperlipidemia, unspecified

== ENCOUNTER → 2018-08-12 14:08 | Outpatient (CLI) | payer MEDICARE ==
[2017-10-22 13:58] VITALS: BMI 37.6
[~2018-08-12 14:08] MED LIST changes: +BAYER CHEWABLE81 MG PO; +K-TAB10 MEQ PO; +LASIX40 MG PO; +PRESERVISION AR1 CAP PO; +VENTOLIN HFA18 GM INH; +VITAMIN B COMPL1 TAB PO; +VITAMIN D31000 UNI2 PO
== END | disposition home or self-care (01) ==
LOC: D.RAD 14:08
DX: D64.81 Anemia due to antineoplastic chemotherapy (principal); D63.1 Anemia in chronic kidney disease; C90.02 Multiple myeloma in relapse; N18.3 Chronic kidney disease, stage 3 (moderate); J44.9 Chronic obstructive pulmonary disease, unspecified

== ENCOUNTER 2018-09-20 10:00 | Outpatient (CLI) | payer MEDICARE ==
[2017-10-22 13:58] VITALS: BMI 37.6
== END 2018-09-20 11:00 | disposition home or self-care (01) ==
LOC: D.MAMMO 10:00
PROVIDERS: ATTEND Family Medicine
DX: Z12.31 Encounter for screening mammogram for malignant neoplasm of breast (principal)

== ENCOUNTER → 2019-11-07 22:00 | Outpatient (CLI) | payer MEDICARE ==
[2017-10-22 13:58] VITALS: BMI 37.6
== END ==
LOC: D.MAMMO 09-30 14:15
PROVIDERS: ATTEND Family Medicine
DX: Z12.31 Encounter for screening mammogram for malignant neoplasm of breast (principal)

== ENCOUNTER → 2020-11-15 07:53 | Outpatient (CLI) | payer MEDICARE ==
[2017-10-22 13:58] VITALS: BMI 37.6
== END | disposition home or self-care (01) ==
LOC: D.US 07:53
PROVIDERS: ATTEND Nurse Practitioner
DX: K80.20 Calculus of gallbladder without cholecystitis without obstruction (principal)

== ENCOUNTER 2020-12-18 08:30 | Day surgery (SDC) | payer MEDICARE ==
[2020-12-17 10:58] LABS: ANION GAP 11.3 mmol/L (8-16); CALCIUM 9.7 mg/dL (8.5-10.1); CARBON DIOXIDE 28.8 mmol/L (21.0-32.0); CREATININE - SERUM 1.3 mg/dL (0.6-1.3); POTASSIUM - SERUM 4.1 mmol/L (3.5-5.1)
[2020-12-17 11:13] LABS: INR 0.99 (0.85-1.17); PROTIME 12.1 SECONDS (11.6-15.0)
[2020-12-17 12:48] LABS: BASOPHILS 0.4 % (0-2); EOSINOPHILS 3.1 % (0-7); HEMATOCRIT 35.3 % (36.0-48.0); HEMOGLOBIN 11.7 g/dL (12-16); MCH 30.8 pg (26.0-34.0); MCHC 33.1 g/dL (31.0-37.0); MEAN PLATELET VOLUME 8.2 fL (7.4-10.4); MONOCYTES 7.4 % (2-11); NEUTROPHILS 73.1 % (40-80); RDW 14.8 % (11.5-14.5); WBC 8.3 10x3/uL (4.8-10.8)
[2020-12-17 12:49] LABS: PLATELET COUNT 190 10x3/uL (130-400)
[~2020-12-18] VITALS: Ht 153.7 cm; Wt 83.0 kg
--- NOTE | ~2020-12-18 | OP ---
PATIENT NAME: TANIKA HUGHES MEDICAL RECORD: [id number] :41 LOCATION:[facility] ADMISSION DATE: SURGEON: MIGEL BRAGA MD DATE OF OPERATION: 12/18/2020 PREOPERATIVE DIAGNOSIS: Symptomatic gallstones. POSTOPERATIVE DIAGNOSES: 1. Symptomatic gallstones with hepatomegaly. 2. Probable distal choledocholithiasis, nonobstructing. PROCEDURE: 1. Laparoscopic cholecystectomy. 2. Intraoperative cholangiography without immediate surgeon interpretation. 3. A 14-gauge core needle liver biopsy. SURGEON: Migel Braga M.D. TILE SHADER: None. BLOOD LOSS: Minimal. ANESTHESIA: General. COMPLICATIONS: None. The risks, possible complications, and alternatives of procedure were explained to the patient. She elects to proceed. The discussion specifically included, but were not limited to, bleeding requiring emergency reoperation, infection, intestinal injury as well as common bile duct injury. OPERATIVE COURSE: The patient was conveyed to the operating room electively on 12/18/2020. General anesthesia was induced by the anesthesia staff. The abdomen was sterilely prepped and draped. An incision was accomplished in the left upper quadrant. A Veress needle was inserted through the incision into the peritoneal cavity. CO2 insufflation was begun. Once a sufficient pneumoperitoneum had been achieved, a 5-mm trocar was inserted through this incision. Under direct internal vision utilizing a television camera, a 12-mm trocar was inserted through an incision at the umbilicus. Two 5 mm trocars were inserted, one in the epigastrium and one far laterally in the right upper quadrant. During insertion of the Veress needle and all trocars, there appeared to have been no injury to the bowels, any intraperitoneal or retroperitoneal structures. The indication for the liver biopsy was hepatomegaly and an abdominal survey was undertaken. No inflammatory process in the abdomen was noted. Under laparoscopic guidance, I percutaneously accessed the right upper quadrant utilizing a 14-gauge core biopsy device. Cores were obtained over the convexity of the liver. The biopsy sites were made hemostatic with electrocautery. I then grasped the gallbladder. I advanced the cholangiogram trocar. I punctured the fundus of the gallbladder. I aspirated bile. I then injected dye. Under real time fluoroscopy static fluoroscopic images were obtained and were sent to the radiologist for interpretation. I asked for an immediate interpretation. The radiologist and I both agree that the distal bile duct was suspicious for filling defects such as a stone. I aspirated bile and removed the cholangiogram OPERATIVE REPORT [id number] TANIKA HUGHES trocar. The gallbladder was grasped and retracted cephalad. The infundibulum was grasped and retracted laterally. Blunt dissection was begun on the triangle of Calot. One cystic artery and once cystic duct were identified. These were clipped followup oblique and divided between clips. The gallbladder was then excised from its bed in the liver. It was placed in a bag retrieval device and was withdrawn through the umbilical fascial defect. The 12-mm trocar was placed and the abdomen reinsufflated. I irrigated and aspirated the right upper quadrant. There was no bleeding even at low pressure of 8. The 12-mm trocar was removed. The fascia at the 12 mm trocar site was closed with a single 0 Vicryl suture utilizing the Cristian-Stephen suture closure device. The other 3 trocars were removed. The skin at the umbilicus was closed with interrupted 4-0 Vicryl Rapide sutures. All skin incisions were closed with interrupted intracuticular 4-0 Vicryl. Benzoin and Steri-Strips were applied. The patient was then extubated and conveyed to the postanesthesia care unit where she was in stable condition. She will be [facility] [place] [facility] We will try to make an appointment to see Dr. Toledo, her on air talent to evaluate her for a possible ERCP. This was a nonobstructing questionable common bile duct stone. TRANSINT:[id number] Voice Confirmation ID: [id number] DOCUMENT ID: [id number] MIGEL BRAGA MD CC: GILES TOLEDO MD and ALYSSA BRANDT DO [id number] DICTATION DATE: 12/18/201951 STRAP FOLDING MACHINE OPERATOR: 12/18/20 2147 [facility] 12/18/20 [place] [id number] [place] [address]
[~2020-12-18 08:30] MED LIST changes: +BENADRYL50 MG PO; +CALCIUM 500 +1 EAC3 PO; +HYDROCODON-ACE1 EAC7 PO
[2020-12-18 09:10] VITALS: BP 165/78; Ht 153.7 cm; Wt 83.0 kg
== END 2020-12-18 18:05 | disposition home or self-care (01) ==
LOC: D.OPS 08:30
PROVIDERS: ATTEND Surgery
DX: K80.80 Other cholelithiasis without obstruction (principal); R16.0 Hepatomegaly, not elsewhere classified; E11.9 Type 2 diabetes mellitus without complications; E78.5 Hyperlipidemia, unspecified; I10 Essential (primary) hypertension; J44.9 Chronic obstructive pulmonary disease, unspecified